=== PATIENT | male | born 1965 | race Caucasian/White ===

== ENCOUNTER 2019-04-06 09:56 | Emergency (ER) | payer BC ==
[2019-04-06] MEDS ORDERED: Aspirin Chewable 81 MG TAB ONE (10:35)
[2019-04-06] MEDS ORDERED: Nitroglycerin 2% Ointment 1 INCH/1 GM Packet ONE (10:35)
--- NOTE | 2019-04-06 10:44 | RAD ---
Exam: Chest one view HISTORY:Chest pain Comparison: None FINDINGS: Cardiac silhouette: Normal Aorta: Unremarkable Pulmonary vessels: Normal Costophrenic angles: Clear LUNGS: No masses or consolidation. Pneumothorax: None Osseous abnormalities: None IMPRESSION: No acute cardiopulmonary process.
[2019-04-06 10:47] LABS: #Eosinphils 0.1 thou/uL (0.0-0.7); #Lymphocytes 0.9 thou/uL (1.20-3.40); #Monocytes 0.7 thou/uL (0.11-0.59); #Neutrophils 3.9 thou/uL (1.40-6.50); %Basophils 0.9 % (0.0-1.0); %Eosinophils 2.5 % (0.0-10.0); %Lymphocytes 15.4 % (21.0-51.0); %Monocytes 11.9 % (0.0-10.0); %Neutrophils 69.4 % (42.0-75.0); Hemoglobin 14.6 g/dL (14.0-18.0); Mean Corpuscular HGB CONC 34.7 g/dL (32.0-36.0); Mean Corpuscular Hemoglobin 33.2 pg (27.0-31.0); Mean Corpuscular Volume 95.8 fL (78.0-98.0); Mean Platelet Volume 8.7 fL (7.4-10.4); Platelet Count 146 thou/uL (130-400); RBC Distribution Width 11.9 % (11.5-14.5); Red Blood Cell (RBC) Count 4.39 mill/uL (4.70-6.10); White Blood Cell (WBC) Count 5.6 thou/uL (4.8-10.8)
[2019-04-06 13:35] LABS: Albumin 4.6 g/dL (3.5-5.0)
[2019-04-06 13:37] LABS: Calcium 9.8 mg/dL (7.8-10.44); Chloride 103 mmol/L (98-107); Potassium 4.3 mmol/L (3.5-5.1); Sodium 139 mmol/L (136-145)
[2019-04-06 13:38] LABS: Globulin 3.8 g/dL (2.4-3.5); Glucose 110 mg/dL (70-105); Protein, Total 8.4 g/dL (6.0-8.3)
[2019-04-06 13:39] LABS: Anion Gap 16 mmol/L (10-20); Carbon Dioxide 24 mmol/L (22-29)
[2019-04-06 13:40] LABS: Bilirubin, Total 1.3 mg/dL (0.2-1.2)
[2019-04-06 13:41] LABS: Alkaline Phosphatase 56 U/L (40-110); Calc. Creatinine Clearance 0 mL/min (70-130); Estimated GFR-MDRD 77
[2019-04-06 13:42] LABS: BUN (Urea Nitrogen) 17 mg/dL (8.4-25.7)
[2019-04-06 13:43] LABS: AST (SGOT) 63 U/L (5-34)
[2019-04-06 13:44] LABS: ALT (SGPT) 72 U/L (8-55); Lipase 68 U/L (8-78)
== END 2019-04-06 14:11 | disposition left against medical advice (07) ==
LOC: ERS 09:56
DX: R07.9 Chest pain, unspecified (principal); I10 Essential (primary) hypertension; F41.9 Anxiety disorder, unspecified; F32.9 Major depressive disorder, single episode, unspecified; Z87.891 Personal history of nicotine dependence; Z79.899 Other long term (current) drug therapy
CPT/HCPCS: 36415; 71045; 80053; 83690; 84484; 85025; 93005